=== PATIENT | female | born 1995 | race Caucasian/White ===

== ENCOUNTER 2017-05-27 14:36 | Emergency (ER) | payer OTHER ==
[~2017-05-27] VITALS: Ht 165.1 cm; Wt 49.9 kg
--- NOTE | 2017-05-27 14:50 | NUR ---
PRESENTS SELF TO ED ACCOMPANIED BY MOTHER DUE TO CHEST PAIN, PRESSURE LIKE, 5/10 AND SOB X 2 DAYS. PATIENT ARRIVED AAO4. APPEARS IN NO APPARENT DISTRES, RESPIRATION EVEN AND UNLABORED., SKIN IS WARM TO TOUCH AND NON DIAPHORETIC. PATIENT IS AFEBRILE. NO SOB
[2017-05-27] MEDS ORDERED: IBUPROFEN 600 MG TABLET PO ONE ×2 (15:00→15:04)
--- NOTE | 2017-05-27 15:00 | NUR ---
PT MEDICATED ORDERED.
[2017-05-27 15:06] LABS: BASOPHILS % (AUTO) 0.5 % (0.0-2.0); EOSINOPHILS % (AUTO) 0.7 % (0.0-6.0); HEMATOCRIT 38 % (33-45); HEMOGLOBIN 13.4 g/dL (11.5-14.8); LYMPHOCYTES # (AUTO) 2.2 /CMM (0.8-4.8); LYMPHOCYTES % (AUTO) 34.5 % (20.0-44.0); MEAN CORPUSCULAR HEMOGLOBIN 30 PG (26.0-33.0); MEAN CORPUSCULAR HGB CONC 35 g/dl (31.0-36.0); MEAN CORPUSCULAR VOLUME 85 fL (82-100); MONOCYTES # (AUTO) 0.5 /CMM (0.1-1.30); MONOCYTES % (AUTO) 7.2 % (2.0-12.0); NEUTROPHILS # (AUTO) 3.7 /CMM (1.8-8.9); NEUTROPHILS % (AUTO) 57.1 % (43.0-81.0); PLATELET COUNT (AUTO) 207 /CMM (150-450); RDW COEFFICIENT OF VARIATION 11.4 (11.5-15.0); RED BLOOD CELL COUNT(AUTO) 4.53 MIL/uL (4.0-5.2); WHITE BLOOD COUNT (AUTO) 6.4 K/uL (4.3-11.0)
--- NOTE | 2017-05-27 16:47 | NUR ---
Patient discharged to home in stable condition. Written and verbal after care instructions given. Patient verbalizes understanding of instruction.
[2017-05-27 16:48] VITALS: BP 109/68
== END 2017-05-27 16:48 | disposition home or self-care (01) ==
LOC: ER 14:40
DX: M94.0 Chondrocostal junction syndrome [Tietze] (principal); R06.02 Shortness of breath
CPT/HCPCS: 36415; 71010; 84703; 85025; 93005; 99285; A4606; Z7610